=== PATIENT | male | born 1990 | race Caucasian/White ===

== ENCOUNTER 2017-06-15 08:38 | Emergency (ER) | payer BC, OTHER ==
[~2017-06-15] VITALS: Ht 177.8 cm; Wt 88.5 kg
[2017-06-15 08:43] VITALS: Ht 177.8 cm; Wt 88.5 kg
--- NOTE | 2017-06-15 08:54 | EMERGENCY ROOM VISIT NOTE ---
History Report prepared by Marilyn: Jackelyn Licona Under the Supervision of: Dr. Collins Goldman M.D. First contact with patient: 08:44 Chief Complaint: TESTICULAR PAIN Stated Complaint: PAIN IN L TESTICLE Nursing Triage Summary: Pt states last evening he began having left testicle pain. Pain radiates into left back. Difficulty with urination this am. Denies hx of kidney stones. History of Present Illness The patient is a 27 year old male who presents to the Emergency Room with complaints of left testicular pain beginning last night. He states that the pain is itchy and rates it at an 8/10.He also reports having diarrhea and a tight throat. He states that he had a fever 4 days ago but that it is gone now. The patient reports that he got bcpj-nuiw-hhf-mouth disease from his niece and that he was on the road yesterday for 11 hours. The patient also states that he moved here recently from [place]. Source of History: patient Onset: last night Position: other (left testicle) Symptom Intensity: rated at an 8/20 Quality: other (itchy) Associated Symptoms: + diarrhea Note: additional symptom: tight throat Review of Systems See HPI for pertinent positives & negatives. A total of 10 systems reviewed and were otherwise negative. Past Medical & Surgical Medical Problems: (1) Stomach problems Family History Cancer Kidney stones Social History Smoking Status: Never Smoker Alcohol Use: occasionally Occupation Status: employed Current/Historical Medications Scheduled Cetirizine (Zyrtec), 10 MG PO DAILY Allergies Coded Allergies: No Known Allergies (Unverified , 06/15/17) Physical Exam Vital Signs Date Time Temp Pulse Resp B/P (MAP) Pulse Ox O2 Delivery O2 Flow Rate FiO2 06/15/17 13:14 86 18 129/71 99 06/15/17 11:56 37.0 92 18 118/58 97 Room Air 06/15/17 10:05 90 18 126/55 98 Room Air 06/15/17 08:43 36.8 91 17 117/59 99 Room Air Physical Exam GENERAL: Patient is a healthy-appearing well-nourished male HEAD: Normocephalic atraumatic EYES: Ocular movements intact pupils equal and react to light OROPHARYNX mucous membranes are moist no exudates present no erythema or edema present NECK: Supple no nuchal rigidity CHEST: Good equal expansion LUNGS: Clear and equal to auscultation CARDIAC: Normal S1 and S2 ABDOMEN: Soft nontender no guarding BACK: No CVA tenderness SKIN: Diffuse rash on palms and soles of feet. : Good cremasteric reflex, left testicle is not swollen and is non-tender on exam. EXTREMITIES: No pain upon palpation normal muscle strength in all groups no clubbing cyanosis or edema NEURO: Patient is following commands and answering questions appropriately. Alert and oriented x3 Cranial Nerves 2-12 grossly intact Medical Decision & Procedures ER Provider Diagnostic Interpretation: Radiology results as stated below per my review and radiologist interpretation: ULTRASOUND TESTES AND SCROTUM CLINICAL HISTORY: Left testicular pain. COMPARISON STUDY: No priors. TECHNIQUE: Real-time, grayscale, and color Doppler sonography of the testes and scrotum is performed. Images are reviewed in the transverse and longitudinal planes. FINDINGS: The testes are normal in size and homogeneous in echotexture. The right testis measures 4.9 x 2.4 x 2.9 cm and the left testis measures 4.7 x 2.4 x 3.0 cm. No intratesticular mass is seen. Testicular blood flow is normal and symmetric. Normal Doppler waveforms are identified in both testes. The epididymal heads are normal in appearance. The right epididymal head measures 1.0 cm in length and the left epididymal head measures 1.0 cm in length. There is a left-sided varicocele which measures up to 4 mm. No right-sided varicocele is identified and no hydrocele is seen. IMPRESSION: 1. Unremarkable sonographic assessment of the testes. 2. A small left-sided varicocele is identified. Electronically signed by: Gal Garcia M.D. 06/15/2017 10:59 AM Dictated Date/Time: 06/15/2017 10:58 AM X-ray results as stated below per interpretation by me and the radiologist: CHEST ONE VIEW PORTABLE CLINICAL HISTORY: 27 years-old Male presenting with Pt c/o fever, rash. TECHNIQUE: Portable upright AP view of the chest was obtained. COMPARISON: None. FINDINGS: Cardiomediastinal silhouette normal. Lungs and pleural spaces clear. Osseous structures normal. Upper abdomen normal. IMPRESSION: 1. No acute cardiopulmonary disease. Electronically signed by: Mitch Garcia M.D. 06/15/2017 11:27 AM Dictated Date/Time: 06/15/2017 11:27 AM Laboratory Results 06/15/17 09:10 Red Blood Count 4.59, Mean Corpuscular Volume 92.8, Mean Corpuscular Hemoglobin 33.1, Mean Corpuscular Hemoglobin Concent 35.7, Mean Platelet Volume 10.7, Neutrophils (%) (Auto) 86.8, Lymphocytes (%) (Auto) 5.5, Monocytes (%) (Auto) 7.2, Eosinophils (%) (Auto) 0.1, Basophils (%) (Auto) 0.1, Neutrophils # (Auto) 10.43, Lymphocytes # (Auto) 0.66, Monocytes # (Auto) 0.86, Eosinophils # (Auto) 0.01, Basophils # (Auto) 0.01 06/15/17 09:10 Test 06/15/17 08:51 06/15/17 09:10 Urine Color YELLOW Urine Appearance CLEAR (CLEAR) Urine pH 7.5 (4.5-7.5) Urine Specific [place] 1.021 (1.000-1.030) Urine Protein NEG (NEG) Urine Glucose (UA) NEG (NEG) Urine Ketones 1+ (NEG) Urine Occult Blood NEG (NEG) Urine Nitrite NEG (NEG) Urine Bilirubin NEG (NEG) Urine Urobilinogen NEG (NEG) Urine Leukocyte Esterase NEG (NEG) White Blood Count 12.01 K/uL (4.8-10.8) Red Blood Count 4.59 M/uL (4.7-6.1) Hemoglobin 15.2 g/dL (14.0-18.0) Hematocrit 42.6 % (42-52) Mean Corpuscular Volume 92.8 fL (80-100) Mean Corpuscular Hemoglobin 33.1 pg (25-34) Mean Corpuscular Hemoglobin Concent 35.7 g/dl (32-36) Platelet Count 152 K/uL (130-400) Mean Platelet Volume 10.7 fL (7.4-10.4) Neutrophils (%) (Auto) 86.8 % Lymphocytes (%) (Auto) 5.5 % Monocytes (%) (Auto) 7.2 % Eosinophils (%) (Auto) 0.1 % Basophils (%) (Auto) 0.1 % Neutrophils # (Auto) 10.43 K/uL (1.4-6.5) Lymphocytes # (Auto) 0.66 K/uL (1.2-3.4) Monocytes # (Auto) 0.86 K/uL (0.11-0.59) Eosinophils # (Auto) 0.01 K/uL (0-0.5) Basophils # (Auto) 0.01 K/uL (0-0.2) RDW Standard Deviation 43.5 fL (36.4-46.3) RDW Coefficient of Variation 12.7 % (11.5-14.5) Immature Granulocyte % (Auto) 0.3 % Immature Granulocyte # (Auto) 0.04 K/uL (0.00-0.02) Anion Gap 4.0 mmol/L (3-11) Est Creatinine Clear Calc Drug Dose 123.2 ml/min Estimated GFR () 118.2 Estimated GFR (Non- 102.0 BUN/Creatinine Ratio 10.0 (10-20) Calcium Level 8.9 mg/dl (8.5-10.1) Total Bilirubin 0.8 mg/dl (0.2-1) Direct Bilirubin 0.2 mg/dl (0-0.2) Aspartate Amino Transf (AST/SGOT) 22 U/L (15-37) Alanine Aminotransferase (ALT/SGPT) 23 U/L (12-78) Alkaline Phosphatase 66 U/L (45-117) Total Protein 7.2 gm/dl (6.4-8.2) Albumin 4.0 gm/dl (3.4-5.0) Lyme Disease IgG Antibody NEG (NEG) Lyme Disease IgM Antibody NEG (NEG) Labs reviewed by ED physician. Medications Administered Medications (Trade) Dose Ordered Sig/Conrado Route Start Time Stop Time Status Last Admin Dose Admin Sodium Chloride 1,000 ml @ 999 mls/hr Q1H1M STAT IV 06/15/17 08:56 06/15/17 09:56 DC 06/15/17 09:12 999 MLS/HR Ketorolac Tromethamine (Toradol Inj) 30 mg NOW STAT IV 06/15/17 08:56 06/15/17 08:58 DC 06/15/17 09:12 30 MG ED Course 0850: Past medical records reviewed. The patient was evaluated in room B9. A complete history and physical examination was performed. 0856: Ordered Toradol Inj 30 mg IV, Sodium Chloride 1,000 ml @ 999 mls/hr IV. 1230: Upon reexamination the patient is resting comfortably. I discussed results and treatment plan with the patient. He verbalizes agreement and understanding. The patient is ready for discharge. Medical Decision Differential diagnosis: Etiologies such as viral syndrome, otitis, pharyngitis, pneumonia, influenza, meningitis, urinary tract infection, sepsis, bacteremia, as well as others were entertained. This is a 27-year-old male who presents emergency part complaining of left testicular pain as well as what he calls pkgz-bguf-rfp-mouth disease. The patient has a number of lesions to the soles and palms of his feet and hands. He recently moved here from [place] for this reason a rickettsia culture was obtained along with Lyme and Ehrlichia. The patient's ultrasound of his testicles does not show any acute process. He is given normal saline bolus along with Toradol. I do believe at this point that the patient is pain-free. I gave the patient the option of having a CAT scan performed to evaluate the testicular pain however using shared medical decision-making the patient wishes to be discharged. He is going to follow-up with urology as an outpatient. I recommended Tylenol and ibuprofen for the pain. Patient was in agreement with the treatment plan. Medication Reconcilliation Current Medication List: was personally reviewed by me Blood Pressure Screening Patient's blood pressure: Normal blood pressure Impression Primary Impression: Testicular pain, left Scribe Attestation The scribe's documentation has been prepared under my direction and personally reviewed by me in its entirety. I confirm that the note above accurately reflects all work, treatment, procedures, and medical decision making performed by me. Departure Information Dispostion Home / Self-Care Referrals No Doctor, Assigned (PCP) Jean Paul Aldrich M.D. Forms HOME CARE DOCUMENTATION FORM, IMPORTANT VISIT INFORMATION, WORK / SCHOOL INSTRUCTIONS Patient Instructions ED Hand Foot Mouth Disease [place], [place] Testicular [place] [facility] [place] [facility] Additional Instructions Follow up with DR Aldrich's office for continued scrotal pain Increase fluids next 48 hours Take 1000 mg Tylenol every 6 hours Take 600 mg Ibuprofen every 6 hours Culture results are usually available in approx 48 hours You have been examined and treated today on an emergency basis only. This is not a substitute for, or an effort to provide, complete comprehensive medical care. It is impossible to recognize and treat all injuries or illnesses in a single emergency department visit. It is therefore important that you follow up closely with your PCP. Call as soon as possible for an appointment. Thank you for your time and consideration. I look forward to speaking with you again soon. Please don't hesitate to call us if you have any questions.
[2017-06-15] MEDS ORDERED: KETOROLAC TROMETHAMINE 30 MG/ML VIAL IV STA (08:56)
[2017-06-15] MEDS ORDERED: SODIUM CHLORIDE 0.9% 1000ML 1,000 ML IV STA (08:56)
[2017-06-15 09:00] LABS: URINE APPEARANCE CLEAR (CLEAR); URINE BILIRUBIN NEG (NEG); URINE COLOR YELLOW; URINE NITRITE NEG (NEG); URINE PH 7.5 (4.5-7.5); URINE SPECIFIC GRAVITY 1.021 (1.000-1.030); UROBILINOGEN NEG (NEG); ZZUR CULT IF INDIC CLEAN CATCH NO
[2017-06-15 09:02] LABS: MANUAL MICROSCOPIC REQUIRED? NO; REVIEW REQ? NO
[2017-06-15] MEDS ORDERED: CETI10TA84 PO (09:06)
[2017-06-15 09:31] LABS: BASO % 0.1 %; BASO ABS # 0.01 K/uL (0-0.2); COMPLETE YES; EOS % 0.1 %; HEMATOCRIT 42.6 % (42-52); IG% 0.3 %; LYMPH % 5.5 %; LYMPH ABS # 0.66 K/uL (1.2-3.4); MEAN CELL VOLUME 92.8 fL (80-100); MEAN CORPUSCULAR HEMOGLOBIN 33.1 pg (25-34); MEAN CORPUSCULAR HGB CONC 35.7 g/dl (32-36); MEAN PLATELET VOLUME 10.7 fL (7.4-10.4); MONO % 7.2 %; NEUT % 86.8 %; PLATELET COUNT 152 K/uL (130-400); RED BLOOD COUNT 4.59 M/uL (4.7-6.1); WHITE BLOOD COUNT 12.01 K/uL (4.8-10.8)
[2017-06-15 09:53] LABS: CALCIUM 8.9 mg/dl (8.5-10.1); POTASSIUM 4.1 mmol/L (3.5-5.1)
[2017-06-15 10:27] LABS: LYME DISEASE AB IGG NEG (NEG); LYME DISEASE AB IGM NEG (NEG)
--- NOTE | 2017-06-15 11:01 | DIAGNOSTIC IMAGING REPORT ---
ULTRASOUND TESTES AND SCROTUM CLINICAL HISTORY: Left testicular pain. COMPARISON STUDY: No priors. TECHNIQUE: Real-time, grayscale, and color Doppler sonography of the testes and scrotum is performed. Images are reviewed in the transverse and longitudinal planes. FINDINGS: The testes are normal in size and homogeneous in echotexture. The right testis measures 4.9 x 2.4 x 2.9 cm and the left testis measures 4.7 x 2.4 x 3.0 cm. No intratesticular mass is seen. Testicular blood flow is normal and symmetric. Normal Doppler waveforms are identified in both testes. The epididymal heads are normal in appearance. The right epididymal head measures 1.0 cm in length and the left epididymal head measures 1.0 cm in length. There is a left-sided varicocele which measures up to 4 mm. No right-sided varicocele is identified and no hydrocele is seen. IMPRESSION: 1. Unremarkable sonographic assessment of the testes. 2. A small left-sided varicocele is identified. Electronically signed by: Gal Garcia M.D. 06/15/2017 10:59 AM Dictated Date/Time: 06/15/2017 10:58 AM
--- NOTE | 2017-06-15 11:28 | DIAGNOSTIC IMAGING REPORT ---
CHEST ONE VIEW PORTABLE CLINICAL HISTORY: 27 years-old Male presenting with Pt c/o fever, rash. TECHNIQUE: Portable upright AP view of the chest was obtained. COMPARISON: None. FINDINGS: Cardiomediastinal silhouette normal. Lungs and pleural spaces clear. Osseous structures normal. Upper abdomen normal. IMPRESSION: 1. No acute cardiopulmonary disease. Electronically signed by: Mitch Garcia M.D. 06/15/2017 11:27 AM Dictated Date/Time: 06/15/2017 11:27 AM
[2017-06-15 11:56] VITALS: TEMP 37
[2017-06-15 13:14] VITALS: BP 129/71; PULSE 86; O2SAT 99
[2017-06-23 23:36] LABS: EHRLICHIA CHAFF IGG AB <1:64 (<1:64); EHRLICHIA CHAFF IGM AB <1:20 (<1:20); R. TYPHI IgG AB Not Detected (Not Detected); R. TYPHI IgM AB Not Detected (Not Detected); RMSF IgM AB Not Detected (Not Detected)
== END 2017-06-15 13:15 | disposition home or self-care (01) ==
LOC: C.EDB 08:39
DX: N50.812 Left testicular pain (principal); Z87.19 Personal history of other diseases of the digestive system; Z80.9 Family history of malignant neoplasm, unspecified; Z84.1 Family history of disorders of kidney and ureter

== ENCOUNTER → 2017-09-08 | Outpatient (CLI) | payer OTHER ==
[~2017-09-08] MED LIST: CETI10TA84 PO
[2017-09-08 15:22] LABS: BASO % 0.2 %; BASO ABS # 0.01 K/uL (0-0.2); COMPLETE YES; EOS % 1.1 %; HEMATOCRIT 45.4 % (42-52); IG% 0.2 %; LYMPH ABS # 1.16 K/uL (1.2-3.4); MEAN CELL VOLUME 93.8 fL (80-100); MEAN CORPUSCULAR HEMOGLOBIN 32.2 pg (25-34); MEAN CORPUSCULAR HGB CONC 34.4 g/dl (32-36); MEAN PLATELET VOLUME 10.4 fL (7.4-10.4); MONO % 8.2 %; NEUT % 71.3 %; PLATELET COUNT 196 K/uL (130-400); RED BLOOD COUNT 4.84 M/uL (4.7-6.1); WHITE BLOOD COUNT 6.12 K/uL (4.8-10.8)
[2017-09-08 15:48] LABS: BLOOD UREA NITROGEN 14 mg/dl (7-18); BUN/CREATININE RATIO 12.8 (10-20); CARBON DIOXIDE 30 mmol/L (21-32); CHLORIDE 105 mmol/L (98-107); CREATININE 1.08 mg/dl (0.60-1.40); GLUCOSE 92 mg/dl (70-99); POTASSIUM 4.1 mmol/L (3.5-5.1); SODIUM 140 mmol/L (136-145)
[2017-09-08 15:58] LABS: THYROID STIMULATING HORMONE 0.392 uIu/ml (0.300-4.500)
== END | disposition home or self-care (01) ==
LOC: C.LAB1850 14:58
PROVIDERS: ATTEND Nurse Practitioner Adult Health
DX: R00.2 Palpitations (principal); R53.83 Other fatigue